=== PATIENT | female | born 2000 | race Hispanic/Latino ===

== ENCOUNTER 2022-04-09 11:24 | Emergency (ER) | payer OTHER ==
[~2022-04-09] VITALS: Ht 162.6 cm; Wt 76.2 kg
[2022-04-09 11:29] VITALS: BP 120/65
[2022-04-09] MEDS ORDERED: LIDOCAINE HCL-MPF 2% 10ML AMP IJ ONE (12:17)
[2022-04-09] MEDS ORDERED: IBUP-2070 PO (12:29)
[2022-04-09] MEDS ORDERED: AMOX1TAB16 PO (12:29)
[2022-04-09] MEDS ORDERED: BACI30OI6 TP (12:48)
[2022-04-09] MEDS ORDERED: BACITRACIN 28.4 GM OINT TP ONE (13:00)
[2022-04-09] MEDS ORDERED: BACITRACIN 1 EACH PACKET TP ONE (13:03)
== END 2022-04-09 13:14 | disposition home or self-care (01) ==
LOC: EDH 11:24
DX: L60.0 Ingrowing nail (principal); Z79.1 Long term (current) use of non-steroidal anti-inflammatories (NSAID)
CPT/HCPCS: 99284; 11750; J3490

== ENCOUNTER 2022-06-06 10:26 | Emergency (ER) | payer OTHER ==
[~2022-06-06] VITALS: Ht 162.6 cm; Wt 74.8 kg
[~2022-06-06 10:26] MED LIST: AMOX1TAB16 PO; BACI30OI6 TP; IBUP-2070 PO
[2022-06-06 10:29] VITALS: BP 125/75
[2022-06-06] MEDS ORDERED: LIDOCAINE HCL 1% 20 ML VIAL INJ SCH (12:30)
[2022-06-06] MEDS ORDERED: LIDOCAINE HCL 1% 10 ML VIAL ONE (12:35)
[2022-06-06] MEDS ORDERED: CEPH500C2 PO (13:14)
== END 2022-06-06 13:42 | disposition home or self-care (01) ==
LOC: EDH 10:26
DX: L60.0 Ingrowing nail (principal)
CPT/HCPCS: 99284; 11730; J3490